=== PATIENT | male | born 1940 | race Hispanic/Latino ===

== ENCOUNTER 2017-11-19 06:14 | Day surgery (SDC) | payer MEDICARE ==
[2016-03-13 09:30] VITALS: PULSE 84
[2017-11-19] MEDS ORDERED: Vancomycin 500mg in NS 500 MG/100 ML BAG IVPB STA (07:02)
[2017-11-19] MEDS ORDERED: Lidocaine 2 GM Vial 2 GM/50 ML VIAL IV ONE (07:14)
[2017-11-19 07:15] VITALS: BMI 30.4
[2017-11-19] MEDS ORDERED: Lactated Ringer's 1,000 ML IV SCH (07:15)
[2017-11-19] MEDS ORDERED: DiphenhydrAMINE 50 mg/ml Inj IVP ONE ×2 (07:30→07:34)
[2017-11-19] MEDS ORDERED: Midazolam 2 MG/2 ML VIAL ONE (07:31)
--- NOTE | 2017-11-19 07:35 | CP.SDSHP ---
Same Day Surgery H & P - History Proposed Procedure: bilateral leg wound debridement, bilateral application of graft, soft tissue biopsy Pre-Op Diagnosis: bilateral leg non-healing wounds - Previous Medical/Surgical History Cardiac: Hypertension, Valvular Heart Disease, Other (atrial fibrillation) Endocrine/Metabolic: Diabetes Pain: 0. No Pain - Allergies Allergies: Allergies vancomycin Allergy (Severe, Verified 11/19/17 07:32) RASH sulfamethoxazole [From Bactrim] Allergy (Verified 03/13/16 09:58) RASH trimethoprim [From Bactrim] Allergy (Verified 03/13/16 09:58) RASH - Physical Exam General Appearance: AAOx3, NAD Vital Signs: Vital Signs 11/19/17 06:35 Temperature 97.6 F Pulse Rate 76 Respiratory 20 Rate Blood Pressure 107/44 L O2 Sat by Pulse 96 Oximetry Mental Status: Alert & Oriented x3 - {Optional Preform as Required} Integument: Other (bilateral anterior tibia mid leg non healing wounds) - Impression Impression: Pt seen and evaluated in SDS. NPO status confirmed except for small amount of water with meds this AM. All questions and concerns addressed with patient. Vancomycin infusion started 7:10 am - pt noted to have hives forming at IV site, Vancomycin discontinued. Benadryl started. Medical and cardiac clearance in chart Pt. Evaluated Today:Candidate for Anesthesia & Procedure: Yes - Date & Time Date: 11/19/17 Time: 07:39 Short Stay Discharge - Short Stay Discharge Admitting Diagnosis/Reason for Visit: E11.622 Disposition: HOME/ ROUTINE Referrals: Jacob Jones MD [Primary Care Provider] - Follow-up: Dressings to remain clean dry and intact Pt to follow up in the wound care center on Pt may be full weight bearing as tolerated
[2017-11-19 08:02] LABS: INR 1.52 (0.93-1.08); PARTIAL THROMBOPLASTIN TIME 29.9 Seconds (25.1-36.5); PROTHROMBIN TIME 17.6 SECONDS (9.4-12.5)
[2017-11-19] MEDS ORDERED: Mineral Oil Light Sterile 25 ml ONE (08:45)
--- NOTE | 2017-11-19 09:20 | PCM.SURG1 ---
Surgeon's Initial Post Op Note - Surgeon's Notes Surgeon: Dr. Sanders Citrus Fruit Packer: Dr. Paola Razo PGY-1 Type of Anesthesia: IV Sedation, Local Anesthesia Administered By: Dr. Chapa Pre-Operative Diagnosis: bilateral venous stasis non-healing leg wounds Operative Findings: see operative report. I: 20cc 2% Lidocaine plain. M: punch biopsy x2, deep wound cultures, 3-0 Vicryl, Integra Primatrix, Adaptic, mineral oil cotton balls, kerlix, webril, DIMITRY, Coban Post-Operative Diagnosis: same Operation Performed: bilateral leg wound debridement, bilateral leg soft tissue biopsy, bilateral leg application of graft Specimen/Specimens Removed: bilateral leg soft tissue Estimated Blood Loss: EBL {In ML}: 5 Blood Products Given: N/A Drains Used: No Drains Post-Op Condition: Good Date of Surgery/Procedure: 11/19/17 Time of Surgery/Procedure: 09:21
[2017-11-19 09:40] VITALS: TEMP 97.5
[2017-11-19 10:57] VITALS: BP 108/49; PULSE 54; RESP 18; O2SAT 98
--- NOTE | 2017-11-19 19:34 | OP ---
PROCEDURE DATE: 11/19/2017 SURGEON: Stephanie Sanders DPM DOOR TECHNICIAN: Paola Razo DPM, PGY-1. ANESTHESIOLOGIST: Dr. Chapa. TYPE OF ANESTHESIA: IV sedation plus local. PREOPERATIVE DIAGNOSES: Bilateral venostasis and nonhealing leg wounds. POSTOPERATIVE DIAGNOSES: Bilateral venostasis and nonhealing leg wounds. PROCEDURE: Bilateral leg wound debridement, bilateral leg soft tissue biopsies, bilateral leg application of graft. INDICATIONS: The patient is a 77 -year-old male with the above diagnoses. The patient has exhausted all conservative treatment at this time and now requires surgical intervention. The patient signed the consent after careful explanation of risks, benefits, complications, and alternatives for surgical procedure. No guarantees were given nor implied. N.p.o. status was confirmed prior to taking the patient to the operating room. PREPARATION: The patient was brought into the operating room and placed on the operating room table in a supine position. Time-out was performed for identification of the correct patient and procedure. After induction of IV sedation, 20 mL of 2% lidocaine plain was administered in a V-block fashion to bilateral legs proximal to the anterior leg wounds. At this time, bilateral lower extremities were then prepped and draped in normal sterile manner and the procedure began. No tourniquet was used during the procedure. DESCRIPTION OF PROCEDURE: Attention was then directed to the medial lower left leg where an approximately an 8 cm x 10 cm x 0.3 cm nonhealing venostasis wound was noted. At this time, a Misonix debridement probe was primed and utilized on setting 7 to excisionally debride all nonviable and fibrotic tissue from the wound bed. At this time, a 2 mm punch biopsy was utilized to excise two single soft tissue biopsies, one from the wound margin and another from the center of the wound. These were then sent to Dermatopathology and Microbiology to rule out malignancy as well as determine the histology of the tissue. Attention was then directed to the right lower leg where an approximately 6 cm x 4 cm x 0.2 cm nonhealing venostasis wound was noted. Once again, the Misonix debridement probe was utilized on setting 7 to excisionally debride all fibrotic and nonviable tissue from the wound bed until fresh and healthy bleeding granular tissue was noted. Once again, punch biopsy was utilized to obtain a soft tissue specimen from the wound borders as well as the center of the wound bed. Deep tissue cultures were then taken from both the left and right lower leg wounds and sent for pathology. At this time, an Integra PriMatrix 8 x 12 cm graft was cut and sized to fit bilateral lower leg wounds. The PriMatrix graft was then re-approximated to the wound edges with 3-0 Vicryl sutures. Bilateral leg wounds were then dressed with Adaptic nonadhering dressing, cotton balls soaked in mineral oil, Kerlix, a Webril, Som bandage, and a Coban for a compressive dressing. POSTOPERATIVE CONDITION: The patient tolerated the anesthesia and procedure well, and was escorted to the recovery room with vital signs stable and neurovascular status intact to bilateral lower extremities. The patient will keep dressing clean, dry, and intact and will follow up in the Wound Care Center with Dr. Sanders on . Paola Razo DPM Stephanie Sanders DPM
== END 2017-11-19 12:30 | disposition home or self-care (01) ==
LOC: SDS 06:14
PROVIDERS: ATTEND Podiatrist
DX: E11.622 Type 2 diabetes mellitus with other skin ulcer (principal); L97.829 Non-pressure chronic ulcer of other part of left lower leg with unspecified severity; L97.819 Non-pressure chronic ulcer of other part of right lower leg with unspecified severity; I87.2 Venous insufficiency (chronic) (peripheral); I48.91 Unspecified atrial fibrillation; I10 Essential (primary) hypertension; L85.9 Epidermal thickening, unspecified
CPT/HCPCS: 15002; 15271; 27614; 36415; 82948; 85610; 85730; 87070; 88305; J1200; J2250; J3010; J3370; J7120 ×2; Q4110

== ENCOUNTER 2018-11-11 07:07 | Outpatient (CLI) | payer MEDICARE | END 2018-11-11 07:08 | disposition home or self-care (01) | LOC: LAB 07:07 ==